=== PATIENT | female | born 1950 | race Caucasian/White ===

== ENCOUNTER 2024-01-13 08:43 | Outpatient (AMB) | payer OTHER, SELFPAY ==
--- NOTE | 2024-01-13 09:02 | PD.ORTHCLVIS ---
Vital signs 01/13/24 09:03 Height 1.63 m Height Method Stated Weight 76.799 kg Weight Measurement Method Standing Scale BMI 28.9 BP 104/64 Blood Pressure Source Automatic Cuff Blood Pressure Location Right Upper Arm Position Sitting Respiration 18 Pulse 100 Pulse Source Monitor Temp 97.3 F Temp Source Temporal Artery Scan Pulse Oximetry (%) 96 Oxygen Delivery Method Room Air Med/Allergies Allergies & Medications Allergies morphine Allergy (Verified 01/13/24 09:03) Medication Reconciliation escitalopram oxalate 10 mg tablet 10 mg PO DAILY 07/18/23 [History Confirmed 01/13/24] levothyroxine 100 mcg capsule 100 mcg PO QDAY 07/18/23 [History Confirmed 01/13/24] acetaminophen 500 mg tablet (Acetaminophen Extra Strength) 1,000 mg (2 x 500 mg) PO Q6H PRN pain #90 tabs 07/21/23 [Rx Confirmed 01/13/24] aspirin 81 mg tablet,delayed release 81 mg PO BID #60 tabs 07/21/23 [Rx Confirmed 01/13/24] acetaminophen 500 mg tablet (Acetaminophen Extra Strength) 1,000 mg (2 x 500 mg) PO Q6H PRN pain #90 tabs 12/29/23 [Rx Confirmed 01/13/24] aspirin 81 mg tablet,delayed release 81 mg PO BID #60 tabs 12/29/23 [Rx Confirmed 01/13/24] doxycycline hyclate 100 mg tablet 100 mg PO BID #14 tabs 12/29/23 [Rx Confirmed 01/13/24] gabapentin 300 mg capsule 300 mg PO .qhs #30 caps 12/29/23 [Rx Confirmed 01/13/24] oxycodone 5 mg tablet 5 mg PO Q6H PRN pain #28 tabs 12/29/23 [Rx Confirmed 01/13/24] sennosides 8.6 mg-docusate sodium 50 mg tablet (Senna-S) 1 tab-cap PO QDAY #30 tabs 12/29/23 [Rx Confirmed 01/13/24] Subjective Visit Visit for: follow up visit, post op #1 and knee Immunization / Flu Flu Vaccine in the Last 12 Months: No Flu Vaccine Exclusion Criteria: No Exclusion Criteria History of Present Illness Chief complaint: 2 WEEK POTS OF RIGHT TKA Date of injury / onset of symptoms: 07/21/23 Date of 1st surgery (if applicable): 12/29/23 Elaine is a pleasant 73-year-old female Who is doing well after her right total knee replacement. She has no issues. Personal History Occupation: RETIRED Red flag PMH: none Pain Pain level (0-10): 2 Pain duration: ON AND OFF Pain location: inside (medial) Pain quality: dull Pain timing: night Associated signs & symptoms: none Ambulatory data Ambulatory device: walker Treatments Improvement with previous injections: No Improvement with PT: No Improvement with NSAIDS: no Review of Systems Review of Systems: All systems negative unless otherwise noted in HPI. Exam Exam Patient is in no acute distress and is cooperative with the examination today. Patient has a normal mood and affect. Breathing is nonlabored. In no respiratory distress. Bilateral extremities were evaluated and demonstrates sensation intact to light touch. Palpable pedal pulses are present. No significant edema is present. Left knee incision is clean dry intact. Range of motion 0 to 100 degrees Right knee is tender to palpation medially. There is varus deformity. Range of motion is 0 to 100 degrees. Assessment and Plan Problem List (1) History of total right knee replacement: Status: Acute Plan: Patient is doing well status post right total knee replacement. Will see her in approximately 4 weeks for routine follow-up. Advanced Care Planning Discussion Advance care planning discussed with:: patient Office Procedures GNS Level of Care Nursing/Assessment Patient Status: Established Patient Nursing Assessment/Reassesment: Medication Reconciliation, Update PMH in EMR and Vital Signs Coordination of Care: Complex Care and Chronic Disease 1-5, Education Complex Pt/Fam, Consent,records obtained, informed consent, Results/Orders obtained and Staff clarify orders Established Patient Charge Established Patient Point Assignment: 95 Established Patient Point Charge: EP Level 3 (80-115) Past Medical History Past Medical History Have you ever been diagnosed with any of the following: Neurological Problems Seizures: No Cardiology Problems Congestive Heart Failure: No Respiratory Problems Chronic Obstructive Pulmonary Disease (COPD): No Smoking: No Smoking Exposure: No Stomache/Intestinal Problems Hepatitis: No Diverticulosis: Yes Hemorrhoids: Yes Obesity: Yes Genital/Urinary Problems Renal Disease: No Reproductive Problems Previous Pregnancies: Yes (3) Musculoskeletal Problems Arthritis: Yes Fractures: Yes (left thumb) Endocrine Problems Diabetes Mellitus Type 1: No Diabetes Mellitus Type 2: No Hypothyroidism: Yes Psychologic Problems Depression: Yes Anxiety: No Other Problems Hospitalization: Yes (surgery) Down Syndrome: No Developmental Delay: No Shingles: No Falls: No Blood Transfusions: Yes Blood Transfusion Reaction: No Anesthesia Reactions: No Organ Transplant: No Chemotherapy: No Radiation Therapy: No Hyperbaric Therapy: No MRSA: No VRSA: No Vancomycin-Resistant Enterococci: No Chicken Pox: Yes Measles: Yes Mumps: Yes Clostridium Difficile: No Cancer: No Surgical History Hysterectomy: Yes
[2024-01-13 09:03] VITALS: BP 104/64; PULSE 100; RESP 18; TEMP 36.3; O2SAT 96; BMI 28.9
== END 2024-01-13 09:23 | disposition home or self-care (01) ==
LOC: HODSRG 08:43
PROVIDERS: PCP Internal Medicine; Referring Provider Internal Medicine; Supervising Provider Orthopaedic Surgery Adult Reconstructive Orthopaedic Surgery; Visit Provider Orthopaedic Surgery Adult Reconstructive Orthopaedic Surgery
DX: Z47.1 Aftercare following joint replacement surgery (principal); Z96.651 Presence of right artificial knee joint
CPT/HCPCS: 99213; G0463

== ENCOUNTER 2024-02-10 10:21 | Outpatient (AMB) | payer OTHER, SELFPAY ==
[2024-02-10 11:13] VITALS: BP 116/63; PULSE 81; RESP 18; TEMP 36.6; O2SAT 95; BMI 28.7
--- NOTE | 2024-02-10 11:13 | PD.ORTHCLVIS ---
Vital signs 02/10/24 11:13 Height 1.63 m Height Method Stated Weight 76.232 kg Weight Measurement Method Standing Scale BMI 28.7 BP 116/63 Blood Pressure Source Automatic Cuff Blood Pressure Location Right Upper Arm Position Sitting Respiration 18 Pulse 81 Pulse Source Monitor Temp 97.8 F Temp Source Temporal Artery Scan Pulse Oximetry (%) 95 Oxygen Delivery Method Room Air Med/Allergies Allergies & Medications Allergies morphine Allergy (Verified 02/10/24 11:15) Medication Reconciliation escitalopram oxalate 10 mg tablet 10 mg PO DAILY 07/18/23 [History Confirmed 02/10/24] levothyroxine 100 mcg capsule 100 mcg PO QDAY 07/18/23 [History Confirmed 02/10/24] acetaminophen 500 mg tablet (Acetaminophen Extra Strength) 1,000 mg (2 x 500 mg) PO Q6H PRN pain #90 tabs 07/21/23 [Rx Confirmed 02/10/24] aspirin 81 mg tablet,delayed release 81 mg PO BID #60 tabs 07/21/23 [Rx Confirmed 02/10/24] acetaminophen 500 mg tablet (Acetaminophen Extra Strength) 1,000 mg (2 x 500 mg) PO Q6H PRN pain #90 tabs 12/29/23 [Rx Confirmed 02/10/24] aspirin 81 mg tablet,delayed release 81 mg PO BID #60 tabs 12/29/23 [Rx Confirmed 02/10/24] doxycycline hyclate 100 mg tablet 100 mg PO BID #14 tabs 12/29/23 [Rx Confirmed 02/10/24] gabapentin 300 mg capsule 300 mg PO .qhs #30 caps 12/29/23 [Rx Confirmed 02/10/24] oxycodone 5 mg tablet 5 mg PO Q6H PRN pain #28 tabs 12/29/23 [Rx Confirmed 02/10/24] sennosides 8.6 mg-docusate sodium 50 mg tablet (Senna-S) 1 tab-cap PO QDAY #30 tabs 12/29/23 [Rx Confirmed 02/10/24] ibuprofen 800 mg tablet 800 mg PO Q6H PRN pain #60 tabs 02/10/24 [Rx] Subjective Visit Visit for: follow up visit Immunization / Flu Flu Vaccine in the Last 12 Months: Yes Flu Vaccine Exclusion Criteria: Already Received History of Present Illness Chief complaint: POST OP Date of injury / onset of symptoms: 07/21/23 Date of 1st surgery (if applicable): 12/29/23 Elaine is a pleasant 73-year-old female Who is doing well after her right total knee replacement. She has no issues. Personal History Occupation: RETIRED Red flag PMH: none Pain Pain level (0-10): 3 Pain duration: COMES AND GOES Pain location: anterior Pain quality: dull and aching Pain timing: increases with activity Associated signs & symptoms: none Ambulatory data Ambulatory device: none Treatments Improvement with previous injections: No Improvement with PT: No Improvement with NSAIDS: n/a Review of Systems Review of Systems: All systems negative unless otherwise noted in HPI. Exam Exam Patient is in no acute distress and is cooperative with the examination today. Patient has a normal mood and affect. Breathing is nonlabored. In no respiratory distress. Bilateral extremities were evaluated and demonstrates sensation intact to light touch. Palpable pedal pulses are present. No significant edema is present. Left knee incision is clean dry intact. Range of motion 0 to 100 degrees Right knee is tender to palpation medially. There is varus deformity. Range of motion is 0 to 100 degrees. X-rays demonstrate bilateral cementless total knee replacement in great alignment position Assessment and Plan Problem List (1) History of total right knee replacement: Status: Acute Plan: Patient is doing well status post right total knee replacement. Will see her in approximately 12 weeks for routine follow-up. Advanced Care Planning Discussion Advance care planning discussed with:: patient and spouse Office Procedures GNS Level of Care Nursing/Assessment Patient Status: Established Patient Nursing Assessment/Reassesment: Medication Reconciliation, Update PMH in EMR and Vital Signs Coordination of Care: Complex Care and Chronic Disease 1-5, Education Complex Pt/Fam, Consent,records obtained, informed consent, Results/Orders obtained and Staff clarify orders Established Patient Charge Established Patient Point Assignment: 95 Established Patient Point Charge: EP Level 3 (80-115) Past Medical History Past Medical History Have you ever been diagnosed with any of the following: Neurological Problems Seizures: No Cardiology Problems Congestive Heart Failure: No Respiratory Problems Chronic Obstructive Pulmonary Disease (COPD): No Smoking: No Smoking Exposure: No Stomache/Intestinal Problems Hepatitis: No Diverticulosis: Yes Hemorrhoids: Yes Obesity: Yes Genital/Urinary Problems Renal Disease: No Reproductive Problems Previous Pregnancies: Yes (3) Musculoskeletal Problems Arthritis: Yes Fractures: Yes (left thumb) Endocrine Problems Diabetes Mellitus Type 1: No Diabetes Mellitus Type 2: No Hypothyroidism: Yes Psychologic Problems Depression: Yes Anxiety: No Other Problems Hospitalization: Yes (surgery) Down Syndrome: No Developmental Delay: No Shingles: No Falls: No Blood Transfusions: Yes Blood Transfusion Reaction: No Anesthesia Reactions: No Organ Transplant: No Chemotherapy: No Radiation Therapy: No Hyperbaric Therapy: No MRSA: No VRSA: No Vancomycin-Resistant Enterococci: No Chicken Pox: Yes Measles: Yes Mumps: Yes Clostridium Difficile: No Cancer: No Surgical History Hysterectomy: Yes
== END 2024-02-10 11:45 | disposition home or self-care (01) ==
LOC: HODSRG 10:21
PROVIDERS: PCP Internal Medicine; Referring Provider Internal Medicine; Supervising Provider Orthopaedic Surgery Adult Reconstructive Orthopaedic Surgery; Visit Provider Orthopaedic Surgery Adult Reconstructive Orthopaedic Surgery
DX: Z96.651 Presence of right artificial knee joint (principal); E03.9 Hypothyroidism, unspecified
CPT/HCPCS: 99213; G0463

== ENCOUNTER → 2024-05-04 | Outpatient (CLI) | payer OTHER, SELFPAY ==
[2024-05-04 11:21] LABS: Basophils # (Auto) 0.1 Thou/mm3 (0.0-0.2); Basophils % (Auto) 1 % (0-2.5); Eosinophils # (Auto) 0.1 Thou/mm3 (0.0-0.5); Eosinophils % (Auto) 2 % (0-10); Hematocrit 38.9 % (36.0-46.0); Immature Granulocytes % (Auto) 0 % (0-0); Immature Granulocytes Auto 0.02 Thou/mm3 (0.00-0.00); Lymphocytes # (Auto) 2.1 Thou/mm3 (1.0-4.8); Lymphocytes % (Auto) 37 % (10-50); Mean Corpuscular HGB Conc 33.4 g/dl (31.0-37.0); Mean Corpuscular Hemoglobin 31.9 pg (25.0-35.0); Mean Corpuscular Volume 96 fL (80-100); Monocytes # (Auto) 0.5 Thou/mm3 (0.0-0.8); Monocytes % (Auto) 9 % (0-12); Neutrophils # (Auto) 2.9 Thou/mm3 (1.8-7.7); Neutrophils % (Auto) 51 % (37-80); Nucleated Red Blood Cell % 0 /100 WBC (0); Platelet Count 340 Thou/mm3 (140-440); RDW Standard Deviation 48.8 fL (36.4-46.3); Red Blood Count 4.07 Miln/mm3 (4.00-5.20); White Blood Count 5.8 Thou/mm3 (3.6-11.0)
[2024-05-04 11:31] LABS: Glucose Estimated Average 114 mg/dL (80-131); Hemoglobin A1C 5.6 % Hgb (4.8-6.0)
[2024-05-04 11:43] LABS: Alanine Aminotransferase 14 U/L (10-49); Albumin, Serum 4.5 gm/dL (3.4-4.8); Albumin/Globulin Ratio 2.1 (1.2-2.2); Alkaline Phosphatase 85 U/L (46-116); Anion Gap 7 (7-16); Aspartate Amino Transferase 20 U/L (0-34); BUN/Creatinine Ratio 21 Ratio (12-20); Bilirubin,Total 0.4 mg/dL (0.3-1.2); Blood Urea Nitrogen 17 mg/dL (9-23); Calcium 10.3 mg/dL (8.3-10.6); Calcium (Corrected) 10.3 mg/dL (8.5-10.1); Carbon Dioxide 30.5 mMol/L (20.0-31.0); Cardiac Risk Estimate 3.9 RATIO (3.7-5.6); Chloride 104 mMol/L (98-107); Cholesterol 232 mg/dL (132-200); Creatinine (Component) 0.8 mg/dL (0.6-1.3); Free T4 (Free Thyroxine) 0.96 ng/dL (0.89-1.76); Globulin 2.1 gm/dL (2.3-3.5); Glucose 98 mg/dL (74-106); HDL Cholesterol 60 mg/dL (40-60); LDL Cholesterol,Calculated 143 mg/dL (0-130); Osmolality,Calculated 282 (275-295); Potassium 4.7 mMol/L (3.4-5.1); Sodium 141 mMol/L (136-145); Thyroid Stimulating Hormone 1.34 uIU/mL (0.55-4.78); Total Protein 6.6 gm/dL (5.7-8.2); Triglycerides 147 mg/dL (30-150); eGFR > 60 See Note
== END | disposition home or self-care (01) ==
LOC: COPL 10:21
PROVIDERS: PCP Internal Medicine; Referring Provider Internal Medicine; Visit Provider Internal Medicine
DX: M19.90 Unspecified osteoarthritis, unspecified site (principal); E11.9 Type 2 diabetes mellitus without complications; E55.9 Vitamin D deficiency, unspecified; E78.2 Mixed hyperlipidemia; E03.9 Hypothyroidism, unspecified
CPT/HCPCS: 36415; 80053; 80061; 82306; 83036; 84439; 84443; 85025

== ENCOUNTER 2024-05-14 09:55 | Outpatient (AMB) | payer OTHER, SELFPAY ==
[2024-05-14 10:13] VITALS: BP 131/76; PULSE 77; RESP 18; TEMP 36.1; O2SAT 96; BMI 28.8
--- NOTE | 2024-05-14 10:13 | ORTHONT_ITS ---
Vital signs 05/14/24 10:13 Height 1.63 m Height Method Stated Weight 76.742 kg Weight Measurement Method Standing Scale BMI 28.8 BP 131/76 H Blood Pressure Source Automatic Cuff Blood Pressure Location Left Upper Arm Position Sitting Respiration 18 Pulse 77 Pulse Source Monitor Temp 97 F Temp Source Temporal Artery Scan Pulse Oximetry (%) 96 Oxygen Delivery Method Room Air Med/Allergies Allergies & Medications Allergies morphine Allergy (Verified 05/14/24 10:14) Medication Reconciliation escitalopram oxalate 10 mg tablet 10 mg PO DAILY 07/18/23 [History Confirmed 05/14/24] levothyroxine 100 mcg capsule 100 mcg PO QDAY 07/18/23 [History Confirmed 05/14/24] acetaminophen 500 mg tablet (Acetaminophen Extra Strength) 1,000 mg (2 x 500 mg) PO Q6H PRN pain #90 tabs 07/21/23 [Rx Confirmed 05/14/24] aspirin 81 mg tablet,delayed release 81 mg PO BID #60 tabs 07/21/23 [Rx Confirmed 05/14/24] acetaminophen 500 mg tablet (Acetaminophen Extra Strength) 1,000 mg (2 x 500 mg) PO Q6H PRN pain #90 tabs 12/29/23 [Rx Confirmed 05/14/24] aspirin 81 mg tablet,delayed release 81 mg PO BID #60 tabs 12/29/23 [Rx Confirmed 05/14/24] doxycycline hyclate 100 mg tablet 100 mg PO BID #14 tabs 12/29/23 [Rx Confirmed 05/14/24] gabapentin 300 mg capsule 300 mg PO .qhs #30 caps 12/29/23 [Rx Confirmed 05/14/24] oxycodone 5 mg tablet 5 mg PO Q6H PRN pain #28 tabs 12/29/23 [Rx Confirmed 05/14/24] sennosides 8.6 mg-docusate sodium 50 mg tablet (Senna-S) 1 tab-cap PO QDAY #30 tabs 12/29/23 [Rx Confirmed 05/14/24] ibuprofen 800 mg tablet 800 mg PO Q6H PRN pain #60 tabs 02/10/24 [Rx Confirmed 05/14/24] Exam Exam Patient is in no acute distress and is cooperative with the examination today. Patient has a normal mood and affect. Breathing is nonlabored. In no respiratory distress. Bilateral extremities were evaluated and demonstrates sensation intact to light touch. Palpable pedal pulses are present. No significant edema is present. Left knee incision is clean dry intact. Range of motion 0 to 100 degrees Right knee is tender to palpation medially. There is varus deformity. Range of motion is 0 to 100 degrees. X-rays demonstrate bilateral cementless total knee replacement in great alignment position Assessment and Plan Problem List (1) History of total right knee replacement: Status: Acute Plan: Patient is doing well status post right total knee replacement. She is doing well and has no pain at all. Will see her in approximately 6 months for routine follow-up. Advanced Care Planning Discussion Advance care planning discussed with:: patient and spouse Office Procedures GNS Level of Care Nursing/Assessment Patient Status: Established Patient Nursing Assessment/Reassesment: Medication Reconciliation, Update PMH in EMR and Vital Signs Coordination of Care: Complex Care and Chronic Disease 1-5, Education Complex Pt/Fam, Consent,records obtained, informed consent, Results/Orders obtained and Staff clarify orders Established Patient Charge Established Patient Point Assignment: 95 Established Patient Point Charge: EP Level 3 (80-115) MA Intake Visit Data Collection New Patient or Established: Established Patient (seen at [facility] within 3 years) Seen by Clinical Staff ONLY (RN/MA): No Heel Cutter Required: No PCP or OBGYN visit in last 3 months: Yes Hx Now: No Do You Feel Safe at Home: Yes Authorities Contacted: N/A Questionairres Past Medical History Past Medical History Have you ever been diagnosed with any of the following: Neurological Problems Seizures: No Cardiology Problems Congestive Heart Failure: No Respiratory Problems Chronic Obstructive Pulmonary Disease (COPD): No Smoking: No Smoking Exposure: No Stomache/Intestinal Problems Hepatitis: No Diverticulosis: Yes Hemorrhoids: Yes Obesity: Yes Genital/Urinary Problems Renal Disease: No Reproductive Problems Previous Pregnancies: Yes (3) Musculoskeletal Problems Arthritis: Yes Fractures: Yes (left thumb) Endocrine Problems Diabetes Mellitus Type 1: No Diabetes Mellitus Type 2: No Hypothyroidism: Yes Psychologic Problems Depression: Yes Anxiety: No Other Problems Hospitalization: Yes (surgery) Down Syndrome: No Developmental Delay: No Shingles: No Falls: No Blood Transfusions: Yes Blood Transfusion Reaction: No Anesthesia Reactions: No Organ Transplant: No Chemotherapy: No Radiation Therapy: No Hyperbaric Therapy: No MRSA: No VRSA: No Vancomycin-Resistant Enterococci: No Chicken Pox: Yes Measles: Yes Mumps: Yes Clostridium Difficile: No Cancer: No Surgical History Hysterectomy: Yes Subjective Visit Visit for: follow up visit (tka) Immunization / Flu Flu Vaccine in the Last 12 Months: Yes Flu Vaccine Exclusion Criteria: Already Received History of Present Illness Chief complaint: Bilateral knee replacement Elaine is doing well status post staged bilateral knee replacement. The most recent side was done 4 months ago and the other 1 was done 11 months ago. She has no pain at all and is back to bowling. She is very happy with her progress Personal History Red flag PMH: none Pain Pain level (0-10): 0 Associated signs & symptoms: none Ambulatory data Ambulatory device: none Treatments Improvement with PT: No Improvement with NSAIDS: n/a Review of Systems Review of Systems: All systems negative unless otherwise noted in HPI.
== END 2024-05-14 10:29 | disposition home or self-care (01) ==
LOC: HODSRG 09:55
PROVIDERS: PCP Internal Medicine; Referring Provider Internal Medicine; Supervising Provider Orthopaedic Surgery Adult Reconstructive Orthopaedic Surgery; Visit Provider Orthopaedic Surgery Adult Reconstructive Orthopaedic Surgery
DX: Z47.1 Aftercare following joint replacement surgery (principal); Z96.653 Presence of artificial knee joint, bilateral
CPT/HCPCS: 99213; G0463

== ENCOUNTER → 2024-06-25 | Outpatient (CLI) | payer OTHER, SELFPAY ==
--- NOTE | 2024-06-25 13:00 | XR_ITS ---
Examination: Screening digital mammography, bilateral Computer aided detection 3-D breast Tomosynthesis, bilateral Date and time of exam: 06/25/2024, 12:53 PM Comparisons: July 2018 through May 2023 Indications: Screening Technique: Nonmagnified MLO, CC views of the breasts to been obtained, reconstructed from 3-D Tomosynthesis images. R2 computer aided detection program utilized for evaluation of suspicious masses and/or abnormal calcifications. 3-D Tomosynthesis images obtained. Technologist: Findings: There are scattered areas of fibroglandular density. No evidence of abnormal masses or suspicious calcifications. Impression: BI-RADS category 1: Negative findings (within normal) Recommend 1 year follow-up mammogram
== END | disposition home or self-care (01) ==
LOC: CDIM 12:43
PROVIDERS: PCP Internal Medicine; Referring Provider Internal Medicine; Visit Provider Internal Medicine
DX: Z12.31 Encounter for screening mammogram for malignant neoplasm of breast (principal); R92.313 Mammographic fatty tissue density, bilateral breasts
CPT/HCPCS: 77063; 77067

== ENCOUNTER → 2024-11-22 | Outpatient (CLI) | payer OTHER, SELFPAY ==
--- NOTE | 2024-11-22 13:00 | XR_ITS ---
Examination: Transvaginal ultrasound of the pelvis, complete Technique: Transvaginal sonographic images pelvis performed using sparks scale imaging Exam date and time: November 22, 2024 1245 hours INDICATION: Patient states bulging in the vaginal region 5 months, hysterectomy 1995 FINDINGS: Absent uterus, absent ovaries IMPRESSION: No pelvic mass No free fluid in the pelvis.
== END | disposition home or self-care (01) ==
PROVIDERS: PCP Internal Medicine; Referring Provider Internal Medicine; Visit Provider Internal Medicine
DX: R10.2 Pelvic and perineal pain (principal)
CPT/HCPCS: 76830

== ENCOUNTER 2025-02-02 09:31 | Outpatient (AMB) | payer OTHER, SELFPAY ==
[2025-02-02 10:00] VITALS: BP 138/73; PULSE 77; RESP 18; TEMP 36.2; O2SAT 95; BMI 29.3
--- NOTE | 2025-02-02 10:00 | GYNCLNT_ITS ---
Vital Signs 02/02/25 10:00 Height 1.63 m Height Method Stated Weight 77.621 kg Weight Measurement Method Standing Scale BMI 29.3 BP 138/73 H Blood Pressure Source Automatic Cuff Blood Pressure Location Right Upper Arm Position Sitting Respiration 18 Pulse 77 Pulse Source Monitor Temp 97.1 F Temp Source Temporal Artery Scan Pulse Oximetry (%) 95 Oxygen Delivery Method Room Air Allergies/Home Meds Allergies & Medications Allergies morphine Allergy (Verified 02/02/25 10:06) Medication Reconciliation escitalopram oxalate 10 mg tablet 10 mg PO DAILY 07/18/23 [History Confirmed 02/02/25] levothyroxine 100 mcg capsule 100 mcg PO QDAY 07/18/23 [History Confirmed 02/02/25] acetaminophen 500 mg tablet (Acetaminophen Extra Strength) 1,000 mg (2 x 500 mg) PO Q6H PRN pain #90 tabs 07/21/23 [Rx Confirmed 02/02/25] aspirin 81 mg tablet,delayed release 81 mg PO BID #60 tabs 07/21/23 [Rx Confirmed 02/02/25] acetaminophen 500 mg tablet (Acetaminophen Extra Strength) 1,000 mg (2 x 500 mg) PO Q6H PRN pain #90 tabs 12/29/23 [Rx Confirmed 02/02/25] aspirin 81 mg tablet,delayed release 81 mg PO BID #60 tabs 12/29/23 [Rx Confirmed 02/02/25] doxycycline hyclate 100 mg tablet 100 mg PO BID #14 tabs 12/29/23 [Rx Confirmed 02/02/25] gabapentin 300 mg capsule 300 mg PO .qhs #30 caps 12/29/23 [Rx Confirmed 02/02/25] oxycodone 5 mg tablet 5 mg PO Q6H PRN pain #28 tabs 12/29/23 [Rx Confirmed 01/15 12/09] sennosides 8.6 mg-docusate sodium 50 mg tablet (Senna-S) 1 tab-cap PO QDAY #30 tabs 12/29/23 [Rx Confirmed 02/02/25] ibuprofen 800 mg tablet 800 mg PO Q6H PRN pain #60 tabs 02/10/24 [Rx Confirmed 02/02/25] Intake Visit Data Collection New Patient or Established: Established Patient (seen at [facility] within 3 years) Reason for Visit:: REFERRAL BULG PAIN ON PRIVATE AREA Seen by Clinical Staff ONLY (RN/MA): No Staffing Administrator Required: No Do You Feel Safe at Home: Yes Authorities Contacted: N/A PCP or OBGYN visit in last 3 months: No Hx Now: No Pain Present Currently: No Pain Scale Used: Rodríguez-Bryant/Numerical Pain scale:: 0 Smoking Status Smoking Status: Former smoker Immunizations Flu Vaccine in the Last 12 Months: No Flu Vaccine Exclusion Criteria: No Exclusion Criteria RELIABILITY TECHNICIAN: Past Medical History Past Medical History: No Hx Neurological Disorders, Yes Hx Hypothyroidism, No Hx Cardiac Disorders, No Hx Cancer, No Hx Blood Disorders, Yes Hx Gastrointestinal Disorders, No Hx Renal Disease, No Hx Diabetes Mellitus Type 1, No Hx Diabetes Mellitus Type 2 and Yes Hx Hysterectomy Questionnaires Social History Living Situation History Housing: House Housing Other:: Patient resides at home with spouse. Tobacco History Smoking Status: Former smoker Pack-Years: 3 Alcohol History Alcohol Intake: Current Alcohol Intake Frequency: holidays/special occasions only Alcohol Intake Frequency Other:: wine on occasions Domestic Abuse History Do You Feel Safe at Home: Yes History of Present Illness HPI Narrative Elaine Burdick presents with a vaginal bulge that has been present for several months, with onset before October when she traveled to [place]. She describes experiencing a vaginal bulge that she has noticed over the past few months. The patient reports mild urinary incontinence, particularly with activities such as coughing and sneezing. She has a significant gynecologic history, having undergone a total hysterectomy in approximately 1985 (around age 30s) for a prolapsed uterus. The hysterectomy was performed via abdominal approach and included removal of the uterus, cervix, and ovaries. The original uterine prolapse was attributed to heavy lifting rather than childbirth-related causes. She has a history of bilateral knee replacements performed by Dr. Montaño, with good outcomes and no current pain or complications from those procedures. The patient denies having menopause symptoms such as vaginal dryness. ROS: Genitourinary: Positive for mild urinary incontinence with cough and sneeze. Negative except as stated above, limited to RELIABILITY TECHNICIAN and pertinent complaints. Exam Narrative Physical exam: - Gynecologic: Pelvic examination reveals bladder prolapse with vaginal vault descent. Patient has history of total hysterectomy with removal of uterus, cerv ix, and ovaries. Vaginal tissues appear well-estrogenized without evidence of atrophy or dryness. 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 - Symptoms of vaginal bulge sensation present for several months. - Contributing factors include lack of superior support after hysterectomy resulting in progressive descent over time. Plan: - Referral to Dr. Kevin Garcia, specialist in [place], for vaginal vault suspension. - Minimally invasive surgical approach through small ports to suspend the vaginal vault to intra-abdominal ligaments. - Communication with primary care physician Dr. Molina regarding referral and treatment plan. - Post-surgical assessment for urinary incontinence with additional procedure if needed. Mild Urinary Incontinence: - Mild stress urinary incontinence with coughing and sneezing. - Related to pelvic organ prolapse and loss of anatomical support following hysterectomy. Plan: - Incontinence evaluation and potential surgical correction to be performed by specialist after vault suspension procedure if symptoms persist. Advanced Care Planning Advance care planning discussed with:: patient
== END 2025-02-02 10:12 | disposition home or self-care (01) ==
LOC: HODSOBC 09:31
PROVIDERS: Supervising Provider Obstetrics & Gynecology; Visit Provider Obstetrics & Gynecology
DX: N81.5 Vaginal enterocele (principal); N81.10 Cystocele, unspecified; E03.9 Hypothyroidism, unspecified; Z90.710 Acquired absence of both cervix and uterus; Z90.722 Acquired absence of ovaries, bilateral; Z90.79 Acquired absence of other genital organ(s); Z96.653 Presence of artificial knee joint, bilateral; Z87.891 Personal history of nicotine dependence; Z79.82 Long term (current) use of aspirin; Z79.890 Hormone replacement therapy; Z79.899 Other long term (current) drug therapy; Z88.5 Allergy status to narcotic agent
CPT/HCPCS: 99214; G0463

== ENCOUNTER → 2025-03-07 | Outpatient (CLI) | payer OTHER, SELFPAY ==
--- NOTE | 2025-03-07 14:30 | XR_ITS ---
Examination: Retroperitoneal ultrasound, complete Technique: Multiple high resolution grayscale images of the retroperitoneum obtained, including kidneys and bladder. Exam date and time: 03/07/2025 at 3:21 p.m. CLINICAL HISTORY: None given The longitudinal dimensions of the right and left kidney are 9.5 and 9.7 cm respectively. Considering the patient's age, this is felt to be essentially okay cortical thickness is 1.6 cm in both kidneys which is normal. Contour of the right kidney is felt to be normal and no mass lesions nor any hydronephrosis are seen. There is a prominent right renal pelvis on the right side, this is a variation of normal anatomy. No calculi are seen either. In the left no hydronephrosis or renal calculi or mass lesions are identified. There is slightly prominent lobulation of the peripheral contour of the left kidney. There is normal color flow vascularity in both kidneys. No color flow ureteral jets are identified entering the urinary bladder at this time. IMPRESSION: 1. Essentially normal appearance of both right and left kidneys. There is a slightly prominent right renal pelvis on the right, this is a common normal variation. 2 there is normal cortical thickness in both kidneys. 3. There is slightly prominent lobulation of the surface contours of the left kidney. 4. No color flow ureteral jets are seen entering the urinary bladder from either side, during this examination
== END | disposition home or self-care (01) ==
LOC: CDIM 13:58
PROVIDERS: PCP Internal Medicine; Referring Provider Internal Medicine; Visit Provider Internal Medicine
DX: Q63.1 Lobulated, fused and horseshoe kidney (principal)
CPT/HCPCS: 76770